=== PATIENT | male | born 1945 | race Caucasian/White ===

== ENCOUNTER 2020-09-03 12:25 | Outpatient (CLI) | payer MEDICARE ==
[~2020-09-03 12:25] MED LIST: ALLO300T PO; ALOG1TAB4 PO; ALPR0.254 PO; ASPI-963 PO; ATOR40TA78 PO; CALC400T6 PO; CARB1TAB46 PO; CEFD300C37 PO; COLC0.6T37 PO; DICL50TA4 PO; GABA300S PO; GEMF-31 PO; LACT1CAP35 PO; LEVE500T53 PO; LISI5TAB7 PO; METF10007 PO; METO200T47 PO; MULT-658 PO; NEFA200T PO; OMEG1CAP23 PO
== END 2020-09-03 23:59 | disposition home or self-care (01) ==
LOC: CARD 12:25
PROVIDERS: ATTEND Psychiatry & Neurology Neurology
DX: G83.84 Todd's paralysis (postepileptic) (principal)
CPT/HCPCS: 95819

== ENCOUNTER 2020-12-03 15:54 | Outpatient (CLI) | payer MEDICARE | END 2020-12-03 23:59 | disposition home or self-care (01) | LOC: LAB 15:54 | PROVIDERS: ATTEND Internal Medicine | DX: Z85.46 Personal history of malignant neoplasm of prostate (principal) | CPT/HCPCS: 36415; 84153; G0103 ==